=== PATIENT | male | born 2005 | race Caucasian/White ===

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

== ENCOUNTER 2024-12-27 20:01 | Emergency (ER) | payer OTHER ==
[~2024-12-27] VITALS: Ht 185.4 cm; Wt 64.7 kg
[2024-12-27 20:03] VITALS: BP 143/88; PULSE 77; O2SAT 100
[2024-12-27] MEDS: HYDROcodone/acetaminophen 10/325mg tab PO STA (20:13)
[2024-12-27] MEDS: ibuprofen 200mg tablet PO ONE (21:21)
[2024-12-27 21:27] VITALS: RESP 13
== END 2024-12-27 21:29 | disposition home or self-care (01) ==
LOC: ER 20:02
DX: S53.114A Anterior dislocation of right ulnohumeral joint, initial encounter (principal); V19.3XXA Pedal cyclist (driver) (passenger) injured in unspecified nontraffic accident, initial encounter; Y93.55 Activity, bike riding; Y92.89 Other specified places as the place of occurrence of the external cause; Y99.8 Other external cause status
CPT/HCPCS: 24600; 73070; 73080; 73090; 99284; A4565; A6449